=== PATIENT | female | born 1970 | race Caucasian/White ===

== ENCOUNTER 2021-04-01 21:04 | Emergency (ER) | payer OTHER ==
[2021-04-01] MEDS ORDERED: Bacitracin Oint 1 GM U/D Packet TOP ONE (22:04)
[2021-04-01] MEDS ORDERED: Lidocaine 1% with EPINEPHrine 1:100,000 50 ML MDV INFILT ONE (22:04)
--- NOTE | 2021-04-01 22:07 | EDM.PDOC ---
ED HPI GENERAL MEDICAL PROBLEM - General Chief Complaint: Laceration Stated Complaint: CUT LT ARM Time Seen by Provider: 04/01/21 21:27 Source of Information: Reports: Patient History Limitations: Reports: No Limitations - History of Present Illness INITIAL COMMENTS - FREE TEXT/NARRATIVE: 50 yo female presents to the ER with a left arm avulsion and right arm abrasions. She was getting out of a boat and lost her balance falling over the rail. She did not hit her head or sustain additional injuries. She is up to date on her tetanus. - Related Data Allergies Allergy/AdvReac Type Severity Reaction Status Date / Time No Known Allergies Allergy Verified 04/01/21 21:28 Home Meds: Home Meds NK [No Known Home Meds] 04/01/21 [History] Past Medical History - Infectious Disease History Infectious Disease History: Reports: Chicken Pox, Mumps - Past Surgical History Female Surgical History: Reports: Hysterectomy Social & Family History - Tobacco Use Tobacco Use Status *Q: Current Some Day Tobacco User Years of Tobacco use: 20 Packs/Tins Daily: 0.5 - Caffeine Use Caffeine Use: Reports: Coffee - Recreational Drug Use Recreational Drug Use: No ED ROS GENERAL - Review of Systems Review Of Systems: See Below Constitutional: Denies: Fever Respiratory: Denies: Shortness of Breath, Wheezing Cardiovascular: Denies: Chest Pain Skin: Reports: Wound ED EXAM, SKIN/RASH Exam: See Below Exam Limited By: No Limitations General Appearance: Alert, WD/WN, No Apparent Distress Respiratory/Chest: No Respiratory Distress, Lungs Clear, Normal Breath Sounds. No: Crackles, Rhonchi, Wheezing Cardiovascular: Regular Rate, Rhythm Skin: Warm, Dry, Intact, Other (multipl eabrasions to the right arm, pie shaped avusion to the left forearm ) ED SKIN PROCEDURES - Laceration/Wound Repair Left Lower Anterior Arm Appearance: Superficial, Subcutaneous Distal NVT: Neuro & Vascular Intact Anesthetic Type: Local Local Anesthesia - Lidocaine (Xylocaine): 1% with EPI Local Anesthetic Volume: Other (10) Skin Prep: Chlorhexidine (Hibiciens), Isopropyl Alcohol (Alcohol), Saline, Sterile Drape Saline Irrigation (cc's): 500 Exploration/Debridement/Repair: Wound Explored, In a Bloodless Field, Explored to Base, Minimal Debridement Closed with: Sutures Lac/Wound length In cm: 8 Suture Size: 4-0 # of Sutures: 20 Suture Type: Nylon, Interrupted, Simple Tetanus Status Addressed: Yes Complications: No Course - Vital Signs Last Recorded V/S: Last Vital Signs Temp 36.3 C 04/01/21 21:36 Pulse 74 04/01/21 21:36 Resp 16 04/01/21 21:36 BP 125/65 04/01/21 21:36 Pulse Ox 99 04/01/21 21:36 - Orders/Labs/Meds Meds: Medications Discontinued Medications Generic Name Dose Route Start Last Admin Trade Name Tk PRN Reason Stop Dose Admin Bacitracin 1 dose 04/01/21 22:04 04/01/21 22:25 Bacitracin Oint 1 Gm U/D Packet TOP 04/01/21 22:05 1 dose ONETIME ONE Administration Lidocaine/Epinephrine 10 ml 04/01/21 22:04 04/01/21 22:24 Lidocaine 1% With Epinephrine 1:100,000 50 Ml Mdv INFILT 04/01/21 22:05 50 ml ONETIME ONE Administration - Re-Assessments/Exams Free Text/Narrative Re-Assessment/Exam: 04/01/21 23:19 avulsion closed without difficulty. dressing applied with compression wrap. Departure - Departure Time of Disposition: 23:21 Disposition: Home, Self-Care 01 Condition: Good Clinical Impression: Avulsion of skin of forearm Qualifiers: Encounter type: initial encounter Laterality: left Qualified Code(s): S51.802A - Unspecified open wound of left forearm, initial encounter - Discharge Information *PRESCRIPTION DRUG MONITORING PROGRAM REVIEWED*: Not Applicable *COPY OF PRESCRIPTION DRUG MONITORING REPORT IN PATIENT ELIZABET: Not Applicable Instructions: Sutures, Patricia, or Adhesive Wound Closure, [id number] Referrals: PCP,None [Primary Care Provider] - Forms: ED Department Discharge Additional Instructions: 20 sutures were placed today sutures will need to be removed in 8-10 days keep dressing in place for 24 hours. change dressing daily there after use compression on dressing for at least 3 days to help it not swell ice as much as possible the next few days ibuprofen for pain control observe for signs of infection: fire engine red, increase in swelling, purulent drainage or increase in pain Sepsis Event Note (ED) - Evaluation Sepsis Screening Result: No Definite Risk - Focused Exam Vital Signs: Vital Signs Temp Pulse Resp BP Pulse Ox 04/01/21 21:36 36.3 C 74 16 125/65 99 04/01/21 21:34 36.3 C 74 16 125/65 99
== END 2021-04-01 23:35 | disposition home or self-care (01) ==
LOC: JP.ED 21:04
DX: S51.802A Unspecified open wound of left forearm, initial encounter (principal); W01.0XXA Fall on same level from slipping, tripping and stumbling without subsequent striking against object, initial encounter
CPT/HCPCS: 12004; 99282-25